=== PATIENT | male | born 1985 | race Caucasian/White ===

== ENCOUNTER 2017-07-07 22:17 | Emergency (ER) | payer OTHER ==
[~2017-07-07] VITALS: Ht 175.3 cm; Wt 89.4 kg
[2017-07-07 22:35] VITALS: BP 144/87
[2017-07-08] MEDS ORDERED: LIDOCAINE 1% (LOCAL ANESTH.) PF 5ml SDV ONE ×2 (02:23→02:28)
[2017-07-08] MEDS ORDERED: HYDROcodone-ACET 10/325MG TAB PO ONE (03:00)
[2017-07-08] MEDS ORDERED: TETANUS-DIPTH-ACEL PERTUSSIS 0.5ML SYRG IM ONE (03:00)
[2017-07-08] MEDS ORDERED: cefTRIAXone SOD 1,000 MG VL ONE (03:07)
[2017-07-08] MEDS ORDERED: cefTRIAXone W LIDOCAINE 1 GM IM IM ONE (03:15)
[2017-07-08] MEDS ORDERED: LIDOCAINE 1% (LOCAL ANESTH.) PF 5ml SDV IJ ONE ×3 (03:15→03:30)
== END 2017-07-08 03:19 | disposition home or self-care (01) ==
LOC: ER 22:17
DX: S61.512A Laceration without foreign body of left wrist, initial encounter (principal); S51.812A Laceration without foreign body of left forearm, initial encounter; W54.0XXA Bitten by dog, initial encounter; Y93.89 Activity, other specified; Y92.89 Other specified places as the place of occurrence of the external cause; Y99.8 Other external cause status
CPT/HCPCS: 12002; 73200; 90471; 90715; 96372; 99284; J0696